=== PATIENT | female | born 1970 | race Caucasian/White ===

== ENCOUNTER → 2016-10-02 11:00 | Outpatient (CLI) | payer OTHER ==
[~2016-10-02 11:00] MED LIST: HYDROCODONE-APA1 TAB PO; NORVASC10 MG PO; ULTRAM50 MG PO
[2016-10-11 07:30] VITALS: BMI 24.0
== END | disposition home or self-care (01) ==
LOC: D.CT 11:00
DX: R59.0 Localized enlarged lymph nodes (principal)

== ENCOUNTER 2016-10-11 05:46 | Day surgery (SDC) | payer OTHER ==
[~2016-10-11] VITALS: Ht 162.6 cm; Wt 63.5 kg
[~2016-10-11 05:46] MED LIST changes: -HYDROCODONE-APA1 TAB PO
[2016-10-11 06:34] LABS: ANION GAP 11.8 mmol/L (8-16); CALCIUM 8.5 mg/dL (8.5-10.1); CREATININE - SERUM 0.9 mg/dL (0.6-1.3); POTASSIUM - SERUM 3.8 mmol/L (3.5-5.1)
[2016-10-11 06:38] LABS: BASOPHILS 0.5 % (0.0-2.0); HEMATOCRIT 46.2 % (36.0-48.0); HEMOGLOBIN 15.5 g/dL (12-16); IMMATURE GRANULOCYTES 0.2 % (0-5); LYMPHOCYTES 28.4 % (15-50); MCH 31.8 pg (26.0-34.0); MCHC 33.5 g/dL (31.0-37.0); MCV 94.7 fL (80.0-100.0); MEAN PLATELET VOLUME 9.9 fL (7.4-10.4); MONOCYTES 9.3 % (2-11); NEUTROPHILS 58.6 % (40-80); PLATELET COUNT 290 10x3/uL (130-400); RBC 4.88 10x6/uL (4.00-5.40); RDW 13.7 % (11.5-14.5); WBC 6.6 10x3/uL (4.8-10.8)
[2016-10-11 07:30] VITALS: BP 126/62; Ht 162.6 cm; Wt 63.5 kg
[2016-10-11] MEDS ORDERED: HYDROCODONE-APA1 TAB PO (09:12)
--- NOTE | 2016-10-18 16:25 | OP ---
PATIENT NAME: HECTOR VENTURA MEDICAL RECORD: [id number] :68 LOCATION:D[facility] ADMISSION DATE: SURGEON: JEY CAVANAUGH MD DATE OF OPERATION: 10/11/2016 PREOPERATIVE DIAGNOSES: 1. Left inguinal lymphadenopathy. 2. Hypertension. POSTOPERATIVE DIAGNOSES:. 1. Left inguinal lymphadenopathy. 2. Hypertension. PROCEDURE: Left inguinal lymph node excisional biopsy. SURGEON: Jey Cavanaugh MD REPORT OF PROCEDURE: The patient's left groin was prepped and draped in sterile fashion. An oblique incision was made above the inguinal ligament. Electrocautery was used to dissect through the subcutaneous tissues and down to the lymphatics: There is a large collection of enlarged lymph nodes present in the left inguinal region. I dissected around to make sure I could find the largest collection that was present. There was a long thin collection of enlarged lymph nodes and this was removed using electrocautery. We then irrigated out the wound and assured there was no sign of any bile leak or any sign of bleeding. At this point, the subcutaneous tissues were reapproximated with interrupted 3-0 Vicryls and the skin was closed with running subcutaneous 5-0 Monocryl. A 10 mL of 0.25% Marcaine with epinephrine was infused into the surrounding tissues and the wound was dressed appropriately. COMPLICATIONS: None. CONDITION: Stable. ANESTHESIA: General endotracheal and local. BLOOD LOSS: Minimal. TRANSINT:[id number] Voice Confirmation ID: [id number] DOCUMENT ID: [id number] JEY CAVANAUGH MD at 1625 CC: [id number] DICTATION DATE: 10/11/16914 DEPOSIT REFUND CLERK: 10/11/16 193 [facility] 10/11/16 [facility] [address] [place] [address]
== END 2016-10-11 11:10 | disposition home or self-care (01) ==
LOC: D.OPS 05:46 → D.PAN 08:15 → D.OPS 08:15
PROVIDERS: Surgery
DX: R59.0 Localized enlarged lymph nodes (principal); I10 Essential (primary) hypertension

== ENCOUNTER → 2017-01-15 18:24 | Outpatient (CLI) | payer OTHER ==
[2016-10-11 07:30] VITALS: BMI 24.0
[~2017-01-15 18:24] MED LIST changes: +HYDROCODONE-APA1 TAB PO
== END | disposition home or self-care (01) ==
LOC: D.MAMMO 14:30
DX: Z12.31 Encounter for screening mammogram for malignant neoplasm of breast (principal)

== ENCOUNTER 2017-02-13 08:43 | Outpatient (CLI) | payer OTHER ==
[2016-10-11 07:30] VITALS: BMI 24.0
== END 2017-02-13 14:03 ==
LOC: D.MAMMO 08:43
DX: R92.8 Other abnormal and inconclusive findings on diagnostic imaging of breast (principal)

== ENCOUNTER → 2017-11-25 19:19 | Outpatient (CLI) | payer OTHER ==
[2016-10-11 07:30] VITALS: BMI 24.0
== END | disposition home or self-care (01) ==
LOC: D.MAMMO 11-19 09:30
DX: R92.8 Other abnormal and inconclusive findings on diagnostic imaging of breast (principal)

== ENCOUNTER 2018-10-05 08:00 | Outpatient (CLI) | payer BC ==
[2016-10-11 07:30] VITALS: BMI 24.0
== END 2018-10-05 09:00 | disposition home or self-care (01) ==
LOC: D.MAMMO 08:00
DX: R92.8 Other abnormal and inconclusive findings on diagnostic imaging of breast (principal)

== ENCOUNTER → 2019-01-06 17:25 | Outpatient (CLI) | payer BC ==
[2016-10-11 07:30] VITALS: BMI 24.0
== END | disposition home or self-care (01) ==
LOC: D.LABREF 17:25
PROVIDERS: ATTEND Urology
DX: R31.9 Hematuria, unspecified (principal)

== ENCOUNTER → 2019-01-20 09:10 | Outpatient (CLI) | payer BC ==
[2016-10-11 07:30] VITALS: BMI 24.0
== END | disposition home or self-care (01) ==
LOC: D.CT 09:00
PROVIDERS: ATTEND Urology
DX: R31.21 Asymptomatic microscopic hematuria (principal)

== ENCOUNTER → 2019-01-21 14:55 | Outpatient (CLI) | payer BC ==
[2016-10-11 07:30] VITALS: BMI 24.0
== END | disposition home or self-care (01) ==
LOC: D.LABREF 14:55
PROVIDERS: ATTEND Urology
DX: N39.0 Urinary tract infection, site not specified (principal)

== ENCOUNTER 2019-02-02 05:20 | Day surgery (SDC) | payer BC ==
[2019-02-02 06:37] VITALS: BP 115/70; BMI 24.4
[2019-02-02 06:45] LABS: HCG URINE NEGATIVE (NEGATIVE)
[2019-02-02 07:17] LABS: HEMATOCRIT 40.2 % (36.0-48.0); HEMOGLOBIN 13.3 g/dL (12-16); MCH 31.5 pg (26.0-34.0); MCHC 33.1 g/dL (31.0-37.0); MCV 95.3 fL (80.0-100.0); MEAN PLATELET VOLUME 10.6 fL (7.4-10.4); RBC 4.22 10x6/uL (4.00-5.40); RDW 12.7 % (11.5-14.5)
--- NOTE | 2019-02-02 08:51 | OP ---
PATIENT NAME: HECTOR VENTURA MEDICAL RECORD: [id number] :[birth year] LOCATION:[facility] ADMISSION DATE: SURGEON: SALOMÓN RODRIGES MD DATE OF OPERATION: 02/02/2019 SURGEON: Salomón Rodriges MD ANESTHESIA: TIVA by Dr. Rajeev Husain. DIAGNOSIS: Microscopic hematuria. PROCEDURE: Cystoscopy. FINDINGS: The patient has a grade II cystocele Plains-Walker scale. On cystoscopy, she has single ureteral orifices bilaterally with no bladder tumors seen. BLOOD LOSS: None. CLINICAL HISTORY: This is a 48-year-old female, who was sent for a diagnosis of microscopic hematuria. She had a CT scan of the abdomen and pelvis, which was normal. Urine cytology was clear. She is a smoker of 1 to 1-1/2 packs per day since age 17 and she quit 6 years ago. SHE IS ALLERGIC TO SULFA AND BACTRIM. She comes today to have cystoscopy performed to complete the hematuria workup. She has no voiding symptoms at all. She was given [facility] non emergency services ambulance driver to the OR. DESCRIPTION OF PROCEDURE: The patient was given IV sedation. She was then placed into the lithotomy position and prepped and draped. A 17-Tajik cystoscope with 30-degree lens was used for visualization. Findings are as outlined above. No tumors were seen. The bladder was then emptied through the cystoscope sheath and then the scope was removed. I will see the patient in followup on a p.r.n. basis. TRANSINT:[id number] Voice Confirmation ID: [id number] DOCUMENT ID: [id number] SALOMÓN RODRIGES MD at 0851 CC: [id number] DICTATION DATE: 02/02/19811 RACK PULLER: 02/02/19 08 [facility] [address] [place] [address]
--- NOTE | 2019-02-02 10:35 | NUR ---
1000 DRESSED, AWAKE & ALERT. GIVEN DISCHARGE INFORMATION INCLUDING: MED REC, [facility] OP D/C INSTRUCTIONS, & CYSTOSCOPY D/C INSTRUCTIONS. TO PRIVATE CAR PER WHEELCHAIR BY Tito KURTZ R.N.. HOME WITH DAUGHTER & GRANDSON. Deborah ALEXANDER R.N.
== END 2019-02-02 10:00 | disposition home or self-care (01) ==
LOC: D.OPS 05:20 → D.PAN 07:30 → D.OPS 10:00 → D.PAN 12:35 → D.OPS 13:15 → D.PAN 13:15
PROVIDERS: Anesthesiology; ATTEND Urology
DX: N81.10 Cystocele, unspecified (principal); R31.29 Other microscopic hematuria; Z87.891 Personal history of nicotine dependence; Z88.2 Allergy status to sulfonamides; Z01.812 Encounter for preprocedural laboratory examination